=== PATIENT | female | born 1935 | race Caucasian/White ===

== ENCOUNTER 2019-01-12 11:26 | Emergency (ER) | payer MEDICARE, BC ==
[2019-01-12 13:53] LABS: Basophils % (A) 0 %; Eosinophils # (A) 0.1 k/uL (0-0.7); Eosinophils % (A) 1 %; HCT 42.3 % (34.0-46.0); HGB 14.5 gm/dL (11.4-16.0); Lymphocytes # (A) 1.5 k/uL (1.0-4.8); Lymphocytes % (A) 18 %; MCH 29.2 pg (25.0-35.0); MCHC 34.4 g/dL (31.0-37.0); Mean Platelet Volume 7.1; Monocytes # (A) 0.4 k/uL (0-1.0); Monocytes % (A) 5 %; Neutrophils % (A) 74 %; Platelet Count 277 k/uL (150-450); RBC 4.98 m/uL (3.80-5.40); RDW 13.9 % (11.5-15.5); WBC 8.1 k/uL (3.8-10.6)
[2019-01-12 14:02] LABS: Appearance,Urine Clear (Clear); Bacteria,Urine Rare /hpf; Bilirubin,Urine Negative (Negative); Blood,Urine Small (Negative); Color,Urine Yellow; Glucose,Urine (UA) Negative (Negative); Ketones,Urine Negative (Negative); Leukocyte Esterase,Urine Negative (Negative); Mucus,Urine Rare /hpf; Nitrite,Urine Negative (Negative); Protein,Urine Negative (Negative); RBC,Urine 1 /hpf (0-5); Specific Gravity,Urine 1.013 (1.001-1.035); Squamous Epithelial Cell,Urine 1 /hpf (0-4); Urobilinogen,Urine <2.0 mg/dL (<2.0); WBC,Urine <1 /hpf (0-5)
[2019-01-12 14:03] LABS: ALT 31 U/L (9-52); AST 21 U/L (14-36); Albumin 4.2 g/dL (3.5-5.0); Alkaline Phosphatase 100 U/L (38-126); Anion Gap 8 mmol/L; Blood Urea Nitrogen 12 mg/dL (7-17); Calcium 9.7 mg/dL (8.4-10.2); Carbon Dioxide 28 mmol/L (22-30); Chloride 104 mmol/L (98-107); Glucose 113 mg/dL (74-99); Potassium 4.4 mmol/L (3.5-5.1); Sodium 140 mmol/L (137-145); Total Bilirubin 0.5 mg/dL (0.2-1.3); Total Protein 6.9 g/dL (6.3-8.2)
[2019-01-12 14:12] LABS: Amphetamine Screen,Urine Not Detected (NotDetected); Barbiturate Screen,Urine Not Detected (NotDetected); Benzodiazepines Screen,Urine Not Detected (NotDetected); Cocaine Screen,Urine Not Detected (NotDetected); Methadone Screen, Urine Not Detected (NotDetected); Opiate Screen,Urine Not Detected (NotDetected); Oxycodone Screen, Urine Not Detected (NotDetected); Phencyclidine Screen,Urine Not Detected (NotDetected); Tricyclic Antidepressant,Urine Not Detected (NotDetected); Urn Cannabinoid Scrn Not Detected (NotDetected)
--- NOTE | 2019-01-12 17:10 | ED ---
General Adult HPI - General Source: patient, family, RN notes reviewed Mode of arrival: ambulatory Limitations: no limitations <Camilo Hopkins - Last Filed: 01/12/19 17:05> <Riley Campos - Last Filed: 01/12/19 19:51> - General Chief complaint: Psychiatric Symptoms Stated complaint: EPS eval, urinary frequency Time Seen by Provider: 01/12/19 12:40 - History of Present Illness Initial comments: 83-year-old female with a past medical history of hyperlipidemia, hypertension, overactive bladder presents to the emergency department for suicidal thoughts. Patient states that she has had an overactive bladder for the past several months and has been urinating multiple times for hour. Patient states she has tried multiple medications for this which just seemed to worsen her symptoms. She states that because of this urinary urgency and frequency she has become suicidal. She states she no longer feels like her life is worth living. Patient states that she was up all night contemplating suicide. States that she wrote suicidal notes to her children and had a plan to overdose. Her daughter came over and apparently intervened and brought her to the emergency department. Patient states this is all stemming from her incontinence as it is affecting her livelihood.Patient has no other complaints at this time including shortness of breath, chest pain, abdominal pain, nausea or vomiting, headache, or visual changes. (Camilo Hopkins) - Related Data Home Medications Medication Instructions Recorded Confirmed Diphenox-Atrop 2.5-0.025 mg 1 tab PO 5XD PRN 01/12/19 01/12/19 [Lomotil] Isosorbide Mononitrate ER [Imdur] 60 mg PO DAILY 01/12/19 01/12/19 Metoprolol Succinate [Toprol Xl] 50 mg PO HS 01/12/19 01/12/19 Mirabegron [Myrbetriq] 50 mg PO DAILY 01/12/19 01/12/19 Oxybutynin Chloride [Ditropan] 10 mg PO DAILY 01/12/19 01/12/19 Simvastatin [Zocor] 20 mg PO HS 01/12/19 01/12/19 traZODone HCL 100 mg PO HS 01/12/19 01/12/19 Allergies Allergy/AdvReac Type Severity Reaction Status Date / Time Penicillins Allergy Unknown Verified 01/12/19 13:32 Childhood sulfamethoxazole Allergy Nausea & Verified 01/12/19 13:32 [From Bactrim] Vomiting & Diarrhea trimethoprim [From Bactrim] Allergy Nausea & Verified 01/12/19 13:32 Vomiting & Diarrhea Review of Systems ROS Other: All systems not noted in ROS Statement are negative. <KellieCamilo Neli - Last Filed: 01/12/19 17:05> ROS Other: All systems not noted in ROS Statement are negative. <Riley Campos - Last Filed: 01/12/19 19:51> ROS Statement: Those systems with pertinent positive or pertinent negative responses have been documented in the HPI. Past Medical History Past Medical History: Hyperlipidemia, Hypertension Additional Past Medical History / Comment(s): frequent urination History of Any Multi-Drug Resistant Organisms: None Reported Past Surgical History: Section, Tubal Ligation Past Psychological History: Anxiety, Depression Smoking Status: Never smoker Past Alcohol Use History: None Reported Past Drug Use History: None Reported <Camilo Hopkins P - Last Filed: 01/12/19 17:05> General Exam Limitations: no limitations General appearance: alert, in no apparent distress Head exam: Present: atraumatic, normocephalic, normal inspection Eye exam: Present: normal appearance, PERRL, EOMI. Absent: scleral icterus, conjunctival injection, periorbital swelling ENT exam: Present: normal exam, mucous membranes moist Neck exam: Present: normal inspection, full ROM. Absent: tenderness, meningismus, lymphadenopathy Respiratory exam: Present: normal lung sounds bilaterally. Absent: respiratory distress, wheezes, rales, rhonchi, stridor Cardiovascular Exam: Present: regular rate, normal rhythm, normal heart sounds. Absent: systolic murmur, diastolic murmur, rubs, gallop, clicks Neurological exam: Present: alert, oriented X3, CN II-XII intact Psychiatric exam: Present: suicidal ideation <Camilo Hopkins - Last Filed: 01/12/19 17:05> General appearance: alert, in no apparent distress Head exam: Present: atraumatic, normocephalic, normal inspection Eye exam: Present: normal appearance, PERRL, EOMI. Absent: scleral icterus, conjunctival injection, periorbital swelling ENT exam: Present: normal exam, mucous membranes moist Neck exam: Present: normal inspection. Absent: tenderness, meningismus, lymphadenopathy Respiratory exam: Present: normal lung sounds bilaterally. Absent: respiratory distress, wheezes, rales, rhonchi, stridor Cardiovascular Exam: Present: regular rate, normal rhythm, normal heart sounds. Absent: systolic murmur, diastolic murmur, rubs, gallop, clicks GI/Abdominal exam: Present: soft, normal bowel sounds. Absent: distended, tenderness, guarding, rebound, rigid Extremities exam: Present: normal inspection, full ROM, normal capillary refill. Absent: tenderness, pedal edema, joint swelling, calf tenderness Back exam: Present: normal inspection Neurological exam: Present: alert, oriented X3, CN II-XII intact Psychiatric exam: Present: normal affect, normal mood Skin exam: Present: warm, dry, intact, normal color. Absent: rash <Riley Campos - Last Filed: 01/12/19 19:51> Course <Camilo Hopkins - Last Filed: 01/12/19 17:05> Vital Signs 01/12/19 01/12/19 01/12/19 11:40 18:00 18:55 Temperature 98.2 F 97.9 F 98.9 F Pulse Rate 93 92 86 Respiratory 17 18 18 Rate Blood Pressure 183/83 167/92 160/89 O2 Sat by Pulse 97 96 98 Oximetry - Reevaluation(s) Reevaluation #1: 01/12/19 17:09 patient's daughter has been at bedside throughout her stay (Camilo Hopkins) Medical Decision Making - Lab Data Result diagrams: 01/12/19 13:30 01/12/19 13:30 <Camilo Hopkins - Last Filed: 01/12/19 17:05> - Lab Data Result diagrams: 01/12/19 13:30 01/12/19 13:30 <Riley Campos - Last Filed: 01/12/19 19:51> - Medical Decision Making 83-year-old female presents for suicidal thoughts after experiencing overactive bladder for the past several months. No relief with medications for this. Patient states this is now ruining her livelihood and she has become suicidal. Patient has a plan to overdose on her medications and has written suicidal notes to her children. Daughter is concerned that she may act on these thoughts. Patient was evaluated by EPS to recommend transfer to geriatric psych facility. Patient is in agreement with this. (Camilo Hopkins) 83 female who was seen and evaluated in emergency room, will be transferred for inpatient psychiatric evaluation and treatment (Riley Campos) - Lab Data Lab Results 01/12/19 01/12/19 01/12/19 Range/Units 13:30 13:30 13:30 WBC 8.1 (3.8-10.6) k/uL RBC 4.98 (3.80-5.40) m/uL Hgb 14.5 (11.4-16.0) gm/dL Hct 42.3 (34.0-46.0) % MCV 85.0 (80.0-100.0) fL MCH 29.2 (25.0-35.0) pg MCHC 34.4 (31.0-37.0) g/dL RDW 13.9 (11.5-15.5) % Plt Count 277 (150-450) k/uL Neutrophils % 74 % Lymphocytes % 18 % Monocytes % 5 % Eosinophils % 1 % Basophils % 0 % Neutrophils # 6.0 (1.3-7.7) k/uL Lymphocytes # 1.5 (1.0-4.8) k/uL Monocytes # 0.4 (0-1.0) k/uL Eosinophils # 0.1 (0-0.7) k/uL Basophils # 0.0 (0-0.2) k/uL Sodium 140 (137-145) mmol/L Potassium 4.4 (3.5-5.1) mmol/L Chloride 104 (98-107) mmol/L Carbon Dioxide 28 (22-30) mmol/L Anion Gap 8 mmol/L BUN 12 (7-17) mg/dL Creatinine 0.55 (0.52-1.04) mg/dL Est GFR (CKD-EPI)AfAm >90 (>60 ml/min/1.73 sqM) Est GFR (CKD-EPI)NonAf 88 (>60 ml/min/1.73 sqM) Glucose 113 H (74-99) mg/dL Calcium 9.7 (8.4-10.2) mg/dL Total Bilirubin 0.5 (0.2-1.3) mg/dL AST 21 (14-36) U/L ALT 31 (9-52) U/L Alkaline Phosphatase 100 (38-126) U/L Total Protein 6.9 (6.3-8.2) g/dL Albumin 4.2 (3.5-5.0) g/dL Urine Color Yellow Urine Appearance Clear (Clear) Urine pH 5.0 (5.0-8.0) Ur Specific [place] 1.013 (1.001-1.035) Urine Protein Negative (Negative) Urine Glucose (UA) Negative (Negative) Urine Ketones Negative (Negative) Urine Blood Small H (Negative) Urine Nitrite Negative (Negative) Urine Bilirubin Negative (Negative) Urine Urobilinogen <2.0 (<2.0) mg/dL Ur Leukocyte Esterase Negative (Negative) Urine RBC 1 (0-5) /hpf Urine WBC <1 (0-5) /hpf Ur Squamous Epith Cells 1 (0-4) /hpf Urine Bacteria Rare H (None) /hpf Urine Mucus Rare H (None) /hpf Urine Opiates Screen Not Detected (NotDetected) Ur Oxycodone Screen Not Detected (NotDetected) Urine Methadone Screen Not Detected (NotDetected) Ur Propoxyphene Screen Not Detected (NotDetected) Ur Barbiturates Screen Not Detected (NotDetected) U Tricyclic Antidepress Not Detected (NotDetected) Ur Phencyclidine Scrn Not Detected (NotDetected) Ur Amphetamines Screen Not Detected (NotDetected) U Methamphetamines Scrn Not Detected (NotDetected) U Benzodiazepines Scrn Not Detected (NotDetected) Urine Cocaine Screen Not Detected (NotDetected) U Marijuana (THC) Screen Not Detected (NotDetected) Disposition Is patient prescribed a controlled substance at d/c from ED?: No Time of Disposition: 17:09 <Camilo Hopkins P - Last Filed: 01/12/19 17:05> Is patient prescribed a controlled substance at d/c from ED?: No <Riley Campos - Last Filed: 01/12/19 19:51> Clinical Impression: Suicidal ideation Disposition: TRANSFER TO PSYCH HOSP/UNIT Condition: Fair Referrals: Gonzalez Aguilar MD [Primary Care Provider] - 1-2 days
[2019-01-12] MEDS ORDERED: LORazepam 1 MG TAB PO STA (17:45)
[2019-01-12] MEDS ORDERED: METOPROLOL SUCCINATE (ER) 50 MG TAB.ER.24H PO STA (19:18)
[2019-01-12] MEDS ORDERED: ATORVASTATIN 20 MG TAB PO STA (19:20)
[2019-01-12] MEDS ORDERED: traZODone HCL 50 MG TAB PO ONE (23:00)
[2019-01-12 23:08] VITALS: TEMP 97.8
[2019-01-13] MEDS ORDERED: LORazepam 1 MG TAB PO STA ×2 (04:22→11:36)
[2019-01-13 05:05] VITALS: BP 118/42; PULSE 69; RESP 16
== END 2019-01-13 11:50 ==
LOC: EC 11:26
DX: R45.851 Suicidal ideations (principal); N32.81 Overactive bladder; E78.5 Hyperlipidemia, unspecified; I10 Essential (primary) hypertension; F41.9 Anxiety disorder, unspecified; F32.9 Major depressive disorder, single episode, unspecified; Z79.899 Other long term (current) drug therapy; Z88.0 Allergy status to penicillin; Z88.1 Allergy status to other antibiotic agents; Z88.2 Allergy status to sulfonamides
CPT/HCPCS: 36415; 80053; 80306; 81001; 82075; 85025; 99285

== ENCOUNTER 2025-01-30 14:22 | Inpatient (IN) | payer MEDICARE, OTHER ==
--- NOTE | 2025-01-30 15:15 | ED ---
General Adult HPI - General Chief complaint: Urogenital Stated complaint: UTI Time Seen by Provider: 01/30/25 14:34 Source: patient, EMS, RN notes reviewed Mode of arrival: EMS Limitations: altered mental status - History of Present Illness Initial comments: This is an 89-year-old female who presents to the emergency department as a transfer from [facility]. She had initially gone to the emergency department there for a fall. She lives at an assisted living facility was found on the floor by staff. The fall was not witnessed. She does have a history of dementia and was found to be at her baseline mentation. She had been complaining of left hip pain and she underwent a CT scan of the abdomen and pelvis at their facility showing diverticulitis and mild left hydroureteronephrosis. There was also concern for the elevated WBC and urinary tract infection. She was started on Levaquin and vancomycin and transferred here for IV antibiotics and urology evaluation. - Related Data Home Medications Medication Instructions Recorded Confirmed Metoprolol Succinate [Toprol Xl] 50 mg PO DAILY@0800 01/12/19 01/30/25 Acetaminophen [Acetaminophen 8 hr] 650 mg PO TID@0800,1400,199901/30/25 01/30/25 Acetaminophen [Tylenol] 650 mg PO Q4H PRN 01/30/25 01/30/25 Atorvastatin [Lipitor] 10 mg PO DAILY@79901/30/25 01/30/25 Calcium Carbonate [Tums] 1,000 mg PO Q2H PRN 01/30/25 01/30/25 Cetirizine HCl [Zyrtec] 10 mg PO DAILY PRN 01/30/25 01/30/25 DULoxetine HCL [Cymbalta] 20 mg PO BID@0800,199901/30/25 01/30/25 Lidocaine 4% Patch 1 patch TOPICAL DAILY@79901/30/25 01/30/25 Magnesium Hydroxide [Milk of 2,400 mg PO DAILY PRN 01/30/25 01/30/25 Magnesia] Melatonin 6 mg PO HS@199901/30/25 01/30/25 Menthol [Nemacolin] 7.5 mg MM Q2H PRN 01/30/25 01/30/25 Morphine Sulfate [Morphine Sulfate 15 mg PO HS@199901/30/25 01/30/25 ER] Morphine Sulfate [Morphine Sulfate 30 mg PO DAILY@79901/30/25 01/30/25 ER] Naproxen [Naprosyn] 250 mg PO BID@799,199901/30/25 01/30/25 Omeprazole [PriLOSEC] 20 mg PO DAILY@79901/30/25 01/30/25 Ondansetron [Zofran] 4 mg PO Q6H PRN 01/30/25 01/30/25 amLODIPine [Norvasc] 10 mg PO DAILY@79901/30/25 01/30/25 guaiFENesin SYRUP 100MG/5ML 100 mg PO Q4H PRN 01/30/25 01/30/25 [Robitussin] traZODone HCL [Desyrel] 50 mg PO HS@199901/30/25 01/30/25 Allergies Allergy/AdvReac Type Severity Reaction Status Date / Time Penicillins Allergy Unknown Verified 01/30/25 16:31 Childhood solifenacin [From Vesicare] Allergy Unknown Verified 01/30/25 16:31 sulfamethoxazole Allergy Nausea & Verified 01/30/25 16:31 [From Bactrim] Vomiting & Diarrhea trimethoprim [From Bactrim] Allergy Nausea & Verified 01/30/25 16:31 Vomiting & Diarrhea Review of Systems ROS Statement: Those systems with pertinent positive or pertinent negative responses have been documented in the HPI. ROS Other: All systems not noted in ROS Statement are negative. Past Medical History Past Medical History: Hyperlipidemia, Hypertension Additional Past Medical History / Comment(s): frequent urination History of Any Multi-Drug Resistant Organisms: None Reported Past Surgical History: Section, Tubal Ligation Past Psychological History: Anxiety, Depression Past Alcohol Use History: None Reported Past Drug Use History: None Reported General Exam Limitations: altered mental status General appearance: alert, in no apparent distress Head exam: Present: atraumatic, normocephalic, normal inspection Respiratory exam: Present: normal lung sounds bilaterally. Absent: respiratory distress, wheezes, rales, rhonchi, stridor Cardiovascular Exam: Present: regular rate, normal rhythm Extremities exam: Present: other (Swelling and tenderness to the bilateral lower extremities) Neurological exam: Present: alert Skin exam: Present: warm, dry, intact, normal color. Absent: rash Course Vital Signs 01/30/25 01/30/2525 14:23 16:10 17:22 Temperature 99.4 F 99.2 F 98.9 F Pulse Rate 88 91 101 H Respiratory 18 16 16 Rate Blood Pressure 101/57 101/55 119/63 O2 Sat by Pulse 97 97 99 Oximetry Medical Decision Making - Medical Decision Making This is an 89-year-old female who presents to the emergency department as a transfer for a UTI and diverticulitis. Was pt. sent in by a medical professional or institution? @ -[facility] Did you speak to anyone other than the patient for history? @ -EMS and documentation from [facility] provided all the history Did you review nursing and triage notes? @ -Yes, and I agree, it is accurate with regards to the patient's symptoms. Were old charts reviewed? @ -Documentation from [facility]: CT scan abd/pelvis: Acute sigmoid diverticulitis. Mild left hydroureteronephrosis without obstructing calculus. CT brain: No acute intracranial process UA: Positive nitrites, greater than 100 WBCs Lab work: WBC - 23.66, procalcitonin - 0.14 Differential Diagnosis? @ -Differential Weakness: Hypoglycemia, shock, sepsis, hyponatremia, anemia, infection, MO, ETOH, adverse medicine reaction, overdose, stroke, this is not meant to be an all-inclusive list. EKG interpreted by me (3pts min.)? @ -Not obtained X-rays interpreted by me (1pt min.)? @ -Not obtained CT interpreted by me (1pt min.)? @ -Not obtained U/S interpreted by me (1pt. min.)? @ -Duplex ultrasound of the bilateral lower extremities obtained. My interpretation identifies no evidence of a DVT. What testing was considered but not performed? (CT, X-rays, U/S, labs)? Why? @ -None What meds were considered but not given? Why? @ -None Did you discuss the management of the patient with other professionals? @ -Yes, Dr. Lou, who accepts the patient for admission Did you reconcile home meds? @ -Yes Was smoking cessation discussed for >3mins.? @ -No Was critical care preformed (if so, how long)? @ -No Were there social determinants of health that impacted care today? How? (Homelessness, low income, unemployed, alcoholism, drug addiction, transporta tion, low edu. Level, literacy, decrease access to med. care, mcc, rehab)? @ -No Was there de-escalation of care discussed even if they declined? (Discuss DNR or withdrawal of care, Hospice)? @ -No What co-morbidities impacted this encounter? (DM, HTN, Smoking, COPD, CAD, Cancer, CVA, Hep., AIDS, mental health diagnosis, sleep apnea, morbid obesity)? @ -Dementia Was patient admitted / discharged? @ -Admitted. Patient transferred from [facility] for diverticulitis and UTI with left hydroureteronephrosis. No obstructing calculus was identified. Transfer packet sent with the patient was thoroughly reviewed. Repeat lab work here demonstrates leukocytosis with a white blood cell count of 16.8. Blood culture obtained at their facility and they also administered IV fluids per sepsis criteria. Urinalysis here remains consistent with infection. Urine sent for culture here as well. She started on ceftriaxone and Flagyl for management of both the UTI and diverticulitis. She did have swelling in the bilateral lower extremities and a duplex ultrasound was obtained. No evidence of a DVT was identified. Patient admitted to medicine for UTI and diverticulitis. Consult placed for infectious disease. Urology consulted for the hydronephrosis. Case discussed with ED attending Dr. Campos Undiagnosed new problem with uncertain prognosis? @ -None Drug Therapy requiring intensive monitoring for toxicity (Heparin, Nitro, Insulin, Cardizem)? @ -None Were any procedures done? @ -None Diagnosis/symptom? @ -Diverticulitis, UTI, hydronephrosis Acute, or Chronic, or Acute on Chronic? @ -Acute Uncomplicated (without systemic symptoms) or Complicated (systemic symptoms)? @ -Complicated Side effects of treatment? @ -None Exacerbation, Progression, or Severe Exacerbation] @ -Not applicable Poses a threat to life or bodily function? @ -Yes, can lead to septic shock and - Lab Data Result diagrams: 01/30/25 15:12 01/30/25 15:12 Lab Results 01/30/25 01/30/25 01/30/25 Range/Units 15:12 15:12 15:12 WBC 16.88 H (4.50-10.00) 10*3/uL RBC 3.57 L (4.10-5.20) 10*6/uL Hgb 8.3 L (12.0-15.0) g/dL Hct 26.0 L (37.2-46.3) % MCV 72.8 L (80.0-97.0) fL MCH 23.2 L (27.0-32.0) pg MCHC 31.9 L (32.0-37.0) g/dL Plt Count 461 H (140-440) 10*3/uL MPV 8.4 L (9.5-12.2) fL Immature Gran % (Auto) 0.4 % Neutrophils % 91.8 % Lymphocytes % 2.4 % Monocytes % 5.3 % Eosinophils % 0.0 % Basophils % 0.1 % Immature Gran # 0.06 H (0.00-0.04) 10*3/uL Neutrophils # 15.50 H (1.80-7.70) 10*3/uL Lymphocytes # 0.41 L (0.90-5.00) 10*3/uL Monocytes # 0.89 (0.20-1.00) 10*3/uL Eosinophils # 0.00 L (0.04-0.35) 10*3/uL Basophils # 0.02 (0.00-0.10) 10*3/uL Sodium 129 L (137-145) mmol/L Potassium 3.7 (3.5-5.1) mmol/L Chloride 93 L (98-107) mmol/L Carbon Dioxide 29 (22-30) mmol/L Anion Gap 7 mmol/L BUN 30 H (7-17) mg/dL Creatinine 0.57 (0.52-1.04) mg/dL Est GFR (CKD-EPI)AfAm >90 (>60 ml/min/1.73 sqM) Est GFR (CKD-EPI)NonAf 84 (>60 ml/min/1.73 sqM) Glucose 105 H (74-99) mg/dL Plasma Lactic Acid Shukri 0.9 (0.7-2.0) mmol/L Calcium 8.7 (8.4-10.2) mg/dL Total Bilirubin 0.6 (0.2-1.3) mg/dL AST 19 (14-36) U/L ALT 10 (4-34) U/L Alkaline Phosphatase 149 H (38-126) U/L NT-Pro-B Natriuret Pep pg/mL Total Protein 4.9 L (6.3-8.2) g/dL Albumin 2.4 L (3.5-5.0) g/dL 01/30/25 Range/Units 15:12 WBC (4.50-10.00) 10*3/uL RBC (4.10-5.20) 10*6/uL Hgb (12.0-15.0) g/dL Hct (37.2-46.3) % MCV (80.0-97.0) fL MCH (27.0-32.0) pg MCHC (32.0-37.0) g/dL Plt Count (140-440) 10*3/uL MPV (9.5-12.2) fL Immature Gran % (Auto) % Neutrophils % % Lymphocytes % % Monocytes % % Eosinophils % % Basophils % % Immature Gran # (0.00-0.04) 10*3/uL Neutrophils # (1.80-7.70) 10*3/uL Lymphocytes # (0.90-5.00) 10*3/uL Monocytes # (0.20-1.00) 10*3/uL Eosinophils # (0.04-0.35) 10*3/uL Basophils # (0.00-0.10) 10*3/uL Sodium (137-145) mmol/L Potassium (3.5-5.1) mmol/L Chloride (98-107) mmol/L Carbon Dioxide (22-30) mmol/L Anion Gap mmol/L BUN (7-17) mg/dL Creatinine (0.52-1.04) mg/dL Est GFR (CKD-EPI)AfAm (>60 ml/min/1.73 sqM) Est GFR (CKD-EPI)NonAf (>60 ml/min/1.73 sqM) Glucose (74-99) mg/dL Plasma Lactic Acid Shukri (0.7-2.0) mmol/L Calcium (8.4-10.2) mg/dL Total Bilirubin (0.2-1.3) mg/dL AST (14-36) U/L ALT (4-34) U/L Alkaline Phosphatase (38-126) U/L NT-Pro-B Natriuret Pep 1340 pg/mL Total Protein (6.3-8.2) g/dL Albumin (3.5-5.0) g/dL - Radiology Data Radiology results: report reviewed, image reviewed Disposition Clinical Impression: Urinary tract infection, Diverticulitis, Hydronephrosis Disposition: ADMITTED IP TO THIS HOSP
[2025-01-30 15:17] LABS: Basophils # (A) 0.02 10*3/uL (0.00-0.10); Basophils % (A) 0.1 %; HGB 8.3 g/dL (12.0-15.0); Lymphocytes # (A) 0.41 10*3/uL (0.90-5.00); Lymphocytes % (A) 2.4 %; MCH 23.2 pg (27.0-32.0); MCHC 31.9 g/dL (32.0-37.0); MCV 72.8 fL (80.0-97.0); Mean Platelet Volume 8.4 fL (9.5-12.2); Monocytes # (A) 0.89 10*3/uL (0.20-1.00); Monocytes % (A) 5.3 %; Neutrophils % (A) 91.8 %; Platelet Count 461 10*3/uL (140-440); RBC 3.57 10*6/uL (4.10-5.20); RDW 17.3 % (11.5-14.5); WBC 16.88 10*3/uL (4.50-10.00)
[2025-01-30] MEDS ORDERED: ONDANSETRON 4 MG/2 ML VIAL IVP PRN (15:27)
[2025-01-30] MEDS ORDERED: NALOXONE 0.4 MG/ML 1 ML VIAL IV PRN (15:27)
[2025-01-30] MEDS ORDERED: HYDROcodone/APAP 5-325MG 1 EACH TAB PO PRN (15:27)
[2025-01-30] MEDS ORDERED: MORPHINE SULFATE 4 MG/ML SYRINGE IV PRN (15:27)
[2025-01-30 15:35] LABS: ALT 10 U/L (4-34); AST 19 U/L (14-36); African American GFR (CKD) >90 (>60 ml/min/1.73 sqM); Albumin 2.4 g/dL (3.5-5.0); Alkaline Phosphatase 149 U/L (38-126); Anion Gap 7 mmol/L; Blood Urea Nitrogen 30 mg/dL (7-17); Calcium 8.7 mg/dL (8.4-10.2); Carbon Dioxide 29 mmol/L (22-30); Chloride 93 mmol/L (98-107); Glucose 105 mg/dL (74-99); Non-African American GFR(CKD) 84 (>60 ml/min/1.73 sqM); Potassium 3.7 mmol/L (3.5-5.1); Sodium 129 mmol/L (137-145); Total Bilirubin 0.6 mg/dL (0.2-1.3); Total Protein 4.9 g/dL (6.3-8.2)
[2025-01-30 15:58] LABS: Appearance,Urine Turbid (Clear); Bacteria,Urine Many /hpf; Bilirubin,Urine Negative (Negative); Blood,Urine Moderate (Negative); Color,Urine Light Yellow; Glucose,Urine (UA) Negative (Negative); Ketones,Urine Negative (Negative); Leukocyte Esterase,Urine Large (Negative); Nitrite,Urine Positive (Negative); Protein,Urine 1+ (Negative); RBC,Urine 22 /hpf (0-5); Specific Gravity,Urine 1.019 (1.001-1.035); Squamous Epithelial Cell,Urine 5 /hpf (0-4); Urobilinogen,Urine <2.0 mg/dL (<2.0); WBC,Urine >182 /hpf (0-5)
[2025-01-30] MEDS: FLUCONAZOLE 150 MG TAB PO STA (16:03)
[2025-01-30] MEDS: MORPHINE SULFATE 2 MG/ML SYRINGE IVP STA (16:04)
[2025-01-30] MEDS: LACTATED RINGERS 1,000 ML IV ONE (16:08)
[2025-01-30] MEDS: metroNIDAZOLE-NS PMX 500 MG in SALINE 1 100ML.BAG IVPB SCH (16:47)
--- NOTE | 2025-01-30 17:00 | US ---
EXAMINATION TYPE: US venous doppler duplex LE BI DATE OF EXAM: 01/30/2025 4:44 PM COMPARISON: NONE CLINICAL INDICATION: Female, 89 years old with history of Pain and swelling; Swelling to bilat legs t he past 2 weeks, UTI, redness at ankle and extreme tenderness in legs, no h/o dvt TECHNIQUE: The lower extremity deep venous system is examined utilizing real time linear array sonog skip with graded compression, color doppler sonography, and spectral doppler. SIDE PERFORMED: Bilateral FINDINGS: VESSELS IMAGED: Common Femoral Vein Deep Femoral Vein Greater Saphenous Vein * Femoral Vein Popliteal Vein Small Saphenous Vein * Proximal Calf Veins (* superficial vessels) Unable to do any compression imaging due to patients extreme leg sensitivity and lack of cooperatio n. Right Leg: Negative for DVT, Color Doppler imaging shows patency of the vessels. Spectral waveforms are within normal limits. Left Leg: Negative for DVT, Color Doppler imaging shows patency of the vessels. Spectral waveforms a re within normal limits. IMPRESSION: No ultrasound evidence for deep venous thrombosis. [facility], , 01/30/2025 4:57 PM
[2025-01-30] MEDS ORDERED: LORATADINE 10 MG TAB PO PRN (17:18)
[2025-01-30] MEDS ORDERED: MAGNESIUM HYDROXIDE 2,400 MG/30 ML CUP PO PRN (17:18)
[2025-01-30] MEDS ORDERED: ONDANSETRON ODT 4 MG TAB PO PRN (17:18)
[2025-01-30] MEDS ORDERED: BENZOCAINE/MENTHOL LOZENG 1 EACH LOZENGE MUCOUS MEM PRN (17:18)
[2025-01-30] MEDS ORDERED: guaiFENesin SYRUP 100MG/5ML 200 MG/10 ML CUP PO PRN (17:18)
[2025-01-30] MEDS ORDERED: CALCIUM CARBONATE 500 MG CHEWABLE PO PRN (17:18)
[2025-01-30] MEDS ORDERED: ACETAMINOPHEN TAB 325 MG TAB PO PRN (17:18)
[2025-01-30] MEDS: LACTATED RINGERS 1,000 ML IV SCH (17:22)
[2025-01-30] MEDS: NAPROXEN 250 MG TAB PO SCH (19:44)
[2025-01-30] MEDS: MELATONIN 3 MG TABLET PO SCH (19:46)
[2025-01-30] MEDS: ACETAMINOPHEN TAB 325 MG TAB PO PRN (19:48)
[2025-01-30] MEDS: MORPHINE SULFATE ER 15 MG TABLET PO SCH (19:48)
[2025-01-30] MEDS: traZODone HCL 50 MG TAB PO SCH (19:48)
[2025-01-30] MEDS: ACETAMINOPHEN TAB 325 MG TAB PO SCH (19:51)
[2025-01-30] MEDS: DULoxetine HCL 20 MG CAPSULE.DR PO SCH (21:19)
--- NOTE | 2025-01-30 21:31 | P.HPIM ---
History of Present Illness H&P Date: 01/30/25 Chief Complaint: Dementia/fall 89-year-old female, history of dementia, hypertension, hyperlipidemia, who presents to the emergency department as a transfer from [facility]. She had initially gone to the emergency department there for a fall. She lives at an assisted living facility was found on the floor by staff. The fall was not witnessed. She does have a history of dementia and was found to be at her baseline mentation. She had been complaining of left hip pain and she underwent a CT scan of the abdomen and pelvis at their facility showing diverticulitis and mild left hydroureteronephrosis. There was also concern for the elevated WBC and urinary tract infection. She was started on Levaquin and vancomycin and transferred here for IV antibiotics and urology evaluation. Documentation accompanying patient from [facility] CT scan abd/pelvis: Acute sigmoid diverticulitis. Mild left hydroureteronephrosis without obstructing calculus. CT brain: No acute intracranial process UA: Positive nitrites, greater than 100 WBCs Lab work: WBC - 23.66, procalcitonin - 0.14 She started on ceftriaxone and Flagyl for management of both the UTI and d iverticulitis. She did have swelling in the bilateral lower extremities and a duplex ultrasound was obtained. No evidence of a DVT was identified. Review of Systems ROS unobtainable: due to mental status Past Medical History Past Medical History: Hyperlipidemia, Hypertension Additional Past Medical History / Comment(s): frequent urination History of Any Multi-Drug Resistant Organisms: None Reported Past Surgical History: Section, Tubal Ligation Past Psychological History: Anxiety, Depression Past Alcohol Use History: None Reported Past Drug Use History: None Reported Medications and Allergies Home Medications Medication Instructions Recorded Confirmed Type Metoprolol Succinate [Toprol Xl] 50 mg PO DAILY@0800 01/12/19 01/30/25 History Acetaminophen [Acetaminophen 8 hr] 650 mg PO TID@0800,1400,2000 01/30/25 01/30/25 History Acetaminophen [Tylenol] 650 mg PO Q4H PRN 01/30/25 01/30/25 History Atorvastatin [Lipitor] 10 mg PO DAILY@0800 01/30/25 01/30/25 History Calcium Carbonate [Tums] 1,000 mg PO Q2H PRN 01/30/25 01/30/25 History Cetirizine HCl [Zyrtec] 10 mg PO DAILY PRN 01/30/25 01/30/25 History DULoxetine HCL [Cymbalta] 20 mg PO BID@799,199901/30/25 01/30/25 History Lidocaine 4% Patch 1 patch TOPICAL DAILY@0800 01/30/25 01/30/25 History Magnesium Hydroxide [Milk of 2,400 mg PO DAILY PRN 01/30/25 01/30/25 History Magnesia] Melatonin 6 mg PO HS@199901/30/25 01/30/25 History Menthol [[place]] 7.5 mg MM Q2H PRN 01/30/25 01/30/25 History Morphine Sulfate [Morphine Sulfate 15 mg PO HS@199901/30/25 01/30/25 History ER] Morphine Sulfate [Morphine Sulfate 30 mg PO DAILY@79901/30/25 01/30/25 History ER] Naproxen [Naprosyn] 250 mg PO BID@799,199901/30/25 01/30/25 History Omeprazole [PriLOSEC] 20 mg PO DAILY@0801/30/25 01/30/25 History Ondansetron [Zofran] 4 mg PO Q6H PRN 01/30/25 01/30/25 History amLODIPine [Norvasc] 10 mg PO DAILY@0801/30/25 01/30/25 History guaiFENesin SYRUP 100MG/5ML 100 mg PO Q4H PRN 01/30/25 01/30/25 History [Robitussin] traZODone HCL [Desyrel] 50 mg PO HS@199901/30/25 01/30/25 History Allergies Allergy/AdvReac Type Severity Reaction Status Date / Time Penicillins Allergy Unknown Verified 01/30/25 16:31 Childhood solifenacin [From Vesicare] Allergy Unknown Verified 01/30/25 16:31 sulfamethoxazole Allergy Nausea & Verified 01/30/25 16:31 [From Bactrim] Vomiting & Diarrhea trimethoprim [From Bactrim] Allergy Nausea & Verified 01/30/25 16:31 Vomiting & Diarrhea Physical Exam Vitals: Vital Signs Temp Pulse Resp BP Pulse Ox 01/30/25 18:12 92 16 106/57 95 01/30/25 17:22 98.9 F 101 H 16 119/63 99 01/30/25 16:10 99.2 F 91 16 101/55 97 01/30/25 14:23 99.4 F 88 18 101/57 97 Intake and Output 01/30/25 01/30/25 01/30/25 06:59 14:59 22:59 Other: Weight 46.266 kg Limitations: altered mental status General appearance: alert, in no apparent distress Head exam: Present: atraumatic, normocephalic, normal inspection Respiratory exam: Present: normal lung sounds bilaterally. Absent: respiratory distress, wheezes, rales, rhonchi, stridor Cardiovascular Exam: Present: regular rate, normal rhythm Extremities exam: Present: other (Swelling and tenderness to the bilateral lower extremities) Neurological exam: Present: alert Skin exam: Present: warm, dry, intact, normal color. Absent: rash Results CBC & Chem 7: 01/30/25 15:12 01/30/25 15:12 Labs: Abnormal Lab Results - Last 24 Hours (Table) 01/30/25 01/30/25 01/30/25 Range/Units 15:12 15:12 15:31 WBC 16.88 H (4.50-10.00) 10*3/uL RBC 3.57 L (4.10-5.20) 10*6/uL Hgb 8.3 L (12.0-15.0) g/dL Hct 26.0 L (37.2-46.3) % MCV 72.8 L (80.0-97.0) fL MCH 23.2 L (27.0-32.0) pg MCHC 31.9 L (32.0-37.0) g/dL Plt Count 461 H (140-440) 10*3/uL MPV 8.4 L (9.5-12.2) fL Immature Gran # 0.06 H (0.00-0.04) 10*3/uL Neutrophils # 15.50 H (1.80-7.70) 10*3/uL Lymphocytes # 0.41 L (0.90-5.00) 10*3/uL Eosinophils # 0.00 L (0.04-0.35) 10*3/uL Sodium 129 L (137-145) mmol/L Chloride 93 L (98-107) mmol/L BUN 30 H (7-17) mg/dL Glucose 105 H (74-99) mg/dL Alkaline Phosphatase 149 H (38-126) U/L Total Protein 4.9 L (6.3-8.2) g/dL Albumin 2.4 L (3.5-5.0) g/dL Urine Appearance Turbid H (Clear) Urine Protein 1+ H (Negative) Urine Blood Moderate H (Negative) Urine Nitrite Positive H (Negative) Ur Leukocyte Esterase Large H (Negative) Urine RBC 22 H (0-5) /hpf Urine WBC >182 H (0-5) /hpf Urine WBC Clumps Many H (None) /hpf Ur Squamous Epith Cells 5 H (0-4) /hpf Urine Bacteria Many H (None) /hpf Assessment and Plan Assessment: 1. Acute diverticulitis; CT of the abdomen reveals acute diverticulitis; patient was placed on IV antibiotics and received IV Levaquin and vancomycin per transfer records - Patient has been switched to IV Rocephin and Flagyl; will keep n.p.o. - Monitor CBC, CRP and procalcitonin; will start on a diet once clinically improving 2. UTI/cystitis; remains on IV Rocephin; blood cultures and urine culture was obtained at the outside facility; will review once available 3. Hydroureteronephrosis - Patient had CT of the abdomen and pelvis completed at outside facility which revealed hydroureteronephrosis without any obstructing calculus - Patient has been placed on IV fluids; urology consulted 4. Hypertension; amlodipine 10 mg daily; metoprolol 50 mg daily 5. Hyperlipidemia; Lipitor 10 mg p.o. nightly 6. Chronic back pain; remains on Cymbalta and morphine sulfate extended release 7. 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 Insomnia/sleep disorder; trazodone 50 mg nightly DVT prophylaxis; SCDs/subcu heparin CODE STATUS; full code
[2025-01-30] MEDS: HEPARIN SODIUM,PORCINE 5,000 UNIT/ML 1 ML VIAL SQ SCH (23:16)
[2025-01-31 09:55] LABS: Basophils # (A) 0.02 X 10*3/uL (0.00-0.10); Basophils % (A) 0.2 %; Eosinophils # (A) 0.02 X 10*3/uL (0.04-0.35); Eosinophils % (A) 0.2 %; HCT 25.7 % (37.2-46.3); HGB 7.9 g/dL (12.0-15.0); Lymphocytes # (A) 0.37 X 10*3/uL (0.90-5.00); Lymphocytes % (A) 3.3 %; MCH 23.1 pg (27.0-32.0); MCHC 30.7 g/dL (32.0-37.0); MCV 75.1 FL (80.0-97.0); Mean Platelet Volume 8.7 FL (9.5-12.2); Monocytes # (A) 0.88 X 10*3/uL (0.20-1.00); Monocytes % (A) 7.8 %; NRBC Per 100 WBC 0 X 10*3/uL (0.00-0.01); Neutrophils # (A) 9.94 X 10*3/uL (1.80-7.70); Neutrophils % (A) 88.1 %; Platelet Count 441 X 10*3/uL (140-440); RBC 3.42 X 10*6/uL (4.10-5.20); RDW 17.8 % (11.5-14.5); WBC 11.28 X 10*3/uL (4.50-10.00)
[2025-01-31 10:05] LABS: Blood Urea Nitrogen 17.6 mg/dL (9.0-27.0); Carbon Dioxide 25.7 mmol/L (21.6-31.8); Chloride 100 mmol/L (96-109); Glucose 92 mg/dL (70-110); Potassium 3.3 mmol/L (3.5-5.5); Sodium 137 mmol/L (135-145)
[2025-01-31 10:06] LABS: Calcium 8.5 mg/dL (8.7-10.3)
[2025-01-31] MEDS: METOPROLOL SUCCINATE (ER) 50 MG TAB.ER.24H PO SCH (10:18)
[2025-01-31] MEDS: PANTOPRAZOLE 40 MG TABLET PO SCH (10:18)
[2025-01-31] MEDS: amLODIPine 10 MG TAB PO SCH (10:19)
[2025-01-31] MEDS: ATORVASTATIN 10 MG TAB PO SCH (10:19)
[2025-01-31] MEDS: MORPHINE SULFATE ER 30 MG TABLET PO SCH (10:19)
[2025-01-31] MEDS: LIDOCAINE 4% PATCH TOPICAL SCH (10:23)
[2025-01-31] MEDS ORDERED: ZINC OXIDE PASTE (Z-GUARD) 1 APPLIC TOPICAL PRN (12:28)
[2025-01-31] MEDS: NYSTATIN 100,000 UNIT/GM OINT 30 GM TUBE TOPICAL SCH (12:29)
[2025-01-31] MEDS: FLUCONAZOLE IN NACL,ISO-OSM 100 MG in SALINE 1 50ML.BAG IVPB SCH (12:29)
[2025-01-31] MEDS: POTASSIUM CHLORIDE ER 20 MEQ TAB.ER PO STA (12:35)
[2025-01-31] MEDS ORDERED: VANCOMYCIN IV PER PHARMACY 1 EACH MISC MISCELLANE PRN (12:46)
[2025-01-31] MEDS: cefTRIAXone 2 GM in DEXTROSE 5% IN WATER 50 ML IVPB SCH (14:51)
[2025-01-31] MEDS: VANCOMYCIN 1,000 MG in SODIUM CHLORIDE 0.9% 250 ML IVPB ONE (15:30)
[2025-01-31] MEDS: NYSTATIN 100,000 UNIT/ML SUSP 500,000 UNIT/5 ML CUP PO SCH (17:56)
--- NOTE | 2025-01-31 20:54 | P.PN ---
Subjective Progress Note Date: 01/31/25 89-year-old female, history of dementia, hypertension, hyperlipidemia, who presents to the emergency department as a transfer from [facility]. She had initially gone to the emergency department there for a fall. She lives at an assisted living facility was found on the floor by staff. The fall was not witnessed. She does have a history of dementia and was found to be at her baseline mentation. She had been complaining of left hip pain and she underwent a CT scan of the abdomen and pelvis at their facility showing diverticulitis and mild left hydroureteronephrosis. There was also concern for the elevated WBC and urinary tract infection. She was started on Levaquin and vancomycin and transferred here for IV antibiotics and urology evaluation. Documentation accompanying patient from [facility] CT scan abd/pelvis: Acute sigmoid diverticulitis. Mild left hydroureteronephr osis without obstructing calculus. CT brain: No acute intracranial process UA: Positive nitrites, greater than 100 WBCs Lab work: WBC - 23.66, procalcitonin - 0.14 She started on ceftriaxone and Flagyl for management of both the UTI and diverticulitis. She did have swelling in the bilateral lower extremities and a duplex ultrasound was obtained. No evidence of a DVT was identified. Objective - Vital Signs Vital signs: Vital Signs Temp 98.3 F 01/31/25 07:53 Pulse 95 01/31/25 07:53 Resp 15 01/31/25 07:53 BP 134/65 01/31/25 07:53 Pulse Ox 96 01/31/25 07:53 FiO2 Intake & Output 01/30/25 01/31/25 01/31/25 18:59 06:59 18:59 Weight 46.266 kg - Exam Limitations: altered mental status General appearance: alert, in no apparent distress Head exam: Present: atraumatic, normocephalic, normal inspection Respiratory exam: Present: normal lung sounds bilaterally. Absent: respiratory distress, wheezes, rales, rhonchi, stridor Cardiovascular Exam: Present: regular rate, normal rhythm Extremities exam: Present: other (Swelling and tenderness to the bilateral lower extremities) Neurological exam: Present: alert Skin exam: Present: warm, dry, intact, normal color. Absent: rash - Labs CBC & Chem 7: 01/31/25 05:20 01/31/25 05:20 Labs: Abnormal Lab Results - Last 24 Hours (Table) 01/30/25 01/30/25 01/30/25 Range/Units 15:12 15:12 15:31 WBC 16.88 H (4.50-10.00) 10*3/uL RBC 3.57 L (4.10-5.20) 10*6/uL Hgb 8.3 L (12.0-15.0) g/dL Hct 26.0 L (37.2-46.3) % MCV 72.8 L (80.0-97.0) fL MCH 23.2 L (27.0-32.0) pg MCHC 31.9 L (32.0-37.0) g/dL RDW (11.5-14.5) % Plt Count 461 H (140-440) 10*3/uL MPV 8.4 L (9.5-12.2) fL Immature Gran # 0.06 H (0.00-0.04) 10*3/uL Neutrophils # 15.50 H (1.80-7.70) 10*3/uL Lymphocytes # 0.41 L (0.90-5.00) 10*3/uL Eosinophils # 0.00 L (0.04-0.35) 10*3/uL Sodium 129 L (137-145) mmol/L Potassium (3.5-5.5) mmol/L Chloride 93 L (98-107) mmol/L BUN 30 H (7-17) mg/dL Creatinine (0.6-1.5) mg/dL BUN/Creatinine Ratio (12.00-20.00) Ratio Glucose 105 H (74-99) mg/dL Calcium (8.7-10.3) mg/dL Alkaline Phosphatase 149 H (38-126) U/L Total Protein 4.9 L (6.3-8.2) g/dL Albumin 2.4 L (3.5-5.0) g/dL Urine Appearance Turbid H (Clear) Urine Protein 1+ H (Negative) Urine Blood Moderate H (Negative) Urine Nitrite Positive H (Negative) Ur Leukocyte Esterase Large H (Negative) Urine RBC 22 H (0-5) /hpf Urine WBC >182 H (0-5) /hpf Urine WBC Clumps Many H (None) /hpf Ur Squamous Epith Cells 5 H (0-4) /hpf Urine Bacteria Many H (None) /hpf 01/31/25 01/31/25 Range/Units 05:20 05:20 WBC 11.28 H (4.50-10.00) 10*3/uL RBC 3.42 L (4.10-5.20) 10*6/uL Hgb 7.9 L (12.0-15.0) g/dL Hct 25.7 L (37.2-46.3) % MCV 75.1 L (80.0-97.0) fL MCH 23.1 L (27.0-32.0) pg MCHC 30.7 L (32.0-37.0) g/dL RDW 17.8 H (11.5-14.5) % Plt Count 441 H (140-440) 10*3/uL MPV 8.7 L (9.5-12.2) fL Immature Gran # 0.05 H (0.00-0.04) 10*3/uL Neutrophils # 9.94 H (1.80-7.70) 10*3/uL Lymphocytes # 0.37 L (0.90-5.00) 10*3/uL Eosinophils # 0.02 L (0.04-0.35) 10*3/uL Sodium (137-145) mmol/L Potassium 3.3 L (3.5-5.5) mmol/L Chloride (98-107) mmol/L BUN (7-17) mg/dL Creatinine 0.5 L (0.6-1.5) mg/dL BUN/Creatinine Ratio 35.20 H (12.00-20.00) Ratio Glucose (74-99) mg/dL Calcium 8.5 L (8.7-10.3) mg/dL Alkaline Phosphatase (38-126) U/L Total Protein (6.3-8.2) g/dL Albumin (3.5-5.0) g/dL Urine Appearance (Clear) Urine Protein (Negative) Urine Blood (Negative) Urine Nitrite (Negative) Ur Leukocyte Esterase (Negative) Urine RBC (0-5) /hpf Urine WBC (0-5) /hpf Urine WBC Clumps (None) /hpf Ur Squamous Epith Cells (0-4) /hpf Urine Bacteria (None) /hpf Assessment and Plan Assessment: 1. Acute diverticulitis; CT of the abdomen reveals acute diverticulitis; patient was placed on IV antibiotics and received IV Levaquin and vancomycin per transfer records - Patient has been switched to IV Rocephin and Flagyl; will keep n.p.o. - Monitor CBC, CRP and procalcitonin; will start on a diet once clinically improving 2. UTI/cystitis; remains on IV Rocephin; blood cultures and urine culture was obtained at the outside facility; will review once available 3. Hydroureteronephrosis - Patient had CT of the abdomen and pelvis completed at outside facility which revealed hydroureteronephrosis without any obstructing calculus - Patient has been placed on IV fluids; urology consulted 4. Hypertension; amlodipine 10 mg daily; metoprolol 50 mg daily 5. Hyperlipidemia; Lipitor 10 mg p.o. nightly 6. Chronic back pain; remains on Cymbalta and morphine sulfate extended release 7. 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 Insomnia/sleep disorder; trazodone 50 mg nightly DVT prophylaxis; SCDs/subcu heparin CODE STATUS; full code
--- NOTE | 2025-01-31 21:41 | P.GSCN ---
History of Present Illness Consult date: 01/31/25 Reason for Consult: UTI, left hydroureteronephrosis Requesting physician: Bart Larson History of present illness: The patient is an 89-year-old white female who resides in a an assisted living facility. She has a history of dementia and was found on the floor by staff. She reported left hip pain and underwent CT scan of the abdomen and pelvis at [facility], revealing diverticulitis and mild left hydrouret eronephrosis. Urinalysis was consistent with a UTI, and laboratory studies showed evidence of leukocytosis. She was started on IV antibiotics and transferred to [facility] for further management. She has been noted to have bilateral lower extremity edema. Duplex ultrasound shows no evidence of a DVT. Blood cultures from [facility] have shown gram-positive cocci in clusters. Urine culture is pending. The patient denies dysuria, hematuria, and flank pain. She denies any prior history of urolithiasis. She states that she was treated for a UTI during a previous . Review of Systems - Cardiovascular Reports high blood pressure - Gastrointestinal Denies constipation, Denies diarrhea - Genitourinary Genitourinary: Reports as per HPI Past Medical History Past Medical History: Hyperlipidemia, Hypertension Additional Past Medical History / Comment(s): frequent urination,diverticulitis History of Any Multi-Drug Resistant Organisms: None Reported Past Surgical History: Section, Hysterectomy, Tubal Ligation Past Psychological History: Anxiety, Depression Smoking Status: Never smoker Past Alcohol Use History: None Reported Past Drug Use History: None Reported - Past Family History Sister(s) Family Medical History: Myocardial Infarction ([place]) Mother Family Medical History: Cancer Additional Family Medical History / Comment(s): breast cancer Brother(s) Family Medical History: Cancer Additional Family Medical History / Comment(s): lung cancer Medications and Allergies Home Medications Medication Instructions Recorded Confirmed Type Metoprolol Succinate [Toprol Xl] 50 mg PO DAILY@0800 01/12/19 01/30/25 History Acetaminophen [Acetaminophen 8 hr] 650 mg PO TID@0800,1400,2000 01/30/25 01/30/25 History Acetaminophen [Tylenol] 650 mg PO Q4H PRN 01/30/25 01/30/25 History Atorvastatin [Lipitor] 10 mg PO DAILY@0800 01/30/2525 History Calcium Carbonate [Tums] 1,000 mg PO Q2H PRN 01/30/25 01/30/25 History Cetirizine HCl [Zyrtec] 10 mg PO DAILY PRN 01/30/25 01/30/25 History DULoxetine HCL [Cymbalta] 20 mg PO BID@08,199901/30/25 01/30/25 History Lidocaine 4% Patch 1 patch TOPICAL DAILY@79901/30/25 01/30/25 History Magnesium Hydroxide [Milk of 2,400 mg PO DAILY PRN 01/30/25 01/30/25 History Magnesia] Melatonin 6 mg PO HS@199901/30/25 01/30/25 History Menthol [[place]] 7.5 mg MM Q2H PRN 01/30/25 01/30/25 History Morphine Sulfate [Morphine Sulfate 15 mg PO HS@199901/30/25 01/30/25 History ER] Morphine Sulfate [Morphine Sulfate 30 mg PO DAILY@79901/30/25 01/30/25 History ER] Naproxen [Naprosyn] 250 mg PO BID@08,199901/30/25 01/30/25 History Omeprazole [PriLOSEC] 20 mg PO DAILY@79901/30/25 01/30/25 History Ondansetron [Zofran] 4 mg PO Q6H PRN 01/30/25 01/30/25 History amLODIPine [Norvasc] 10 mg PO DAILY@0801/30/25 01/30/25 History guaiFENesin SYRUP 100MG/5ML 100 mg PO Q4H PRN 01/30/25 01/30/25 History [Robitussin] traZODone HCL [Desyrel] 50 mg PO HS@199901/30/25 01/30/25 History Allergies Allergy/AdvReac Type Severity Reaction Status Date / Time Penicillins Allergy Unknown Verified 01/30/25 16:31 Childhood solifenacin [From Vesicare] Allergy Unknown Verified 01/30/25 16:31 sulfamethoxazole Allergy Nausea & Verified 01/30/25 16:31 [From Bactrim] Vomiting & Diarrhea trimethoprim [From Bactrim] Allergy Nausea & Verified 01/30/25 16:31 Vomiting & Diarrhea Surgical - Exam Vital Signs Temp Pulse Resp BP Pulse Ox 99.4 F 88 18 101/57 97 01/30/25 14:23 01/30/25 14:23 01/30/25 14:23 01/30/25 14:23 01/30/25 14:23 - General well developed, well nourished, no distress - Respiratory normal respiratory effort - Abdomen Soft, non-distended, no mass. Mild diffuse tenderness (R>L), no guarding or rebound. - Psychiatric oriented to time, oriented to person, oriented to place, speech is normal, memory intact Results - Labs 01/31/25 05:20 01/31/25 05:20 Abnormal Lab Results - Last 24 Hours (Table) 01/31/25 01/31/25 Range/Units 05:20 05:20 WBC 11.28 H (4.50-10.00) X 10*3/uL RBC 3.42 L (4.10-5.20) X 10*6/uL Hgb 7.9 L (12.0-15.0) g/dL Hct 25.7 L (37.2-46.3) % MCV 75.1 L (80.0-97.0) FL MCH 23.1 L (27.0-32.0) pg MCHC 30.7 L (32.0-37.0) g/dL RDW 17.8 H (11.5-14.5) % Plt Count 441 H (140-440) X 10*3/uL MPV 8.7 L (9.5-12.2) FL Immature Gran # 0.05 H (0.00-0.04) X 10*3/uL Neutrophils # 9.94 H (1.80-7.70) X 10*3/uL Lymphocytes # 0.37 L (0.90-5.00) X 10*3/uL Eosinophils # 0.02 L (0.04-0.35) X 10*3/uL Potassium 3.3 L (3.5-5.5) mmol/L Creatinine 0.5 L (0.6-1.5) mg/dL BUN/Creatinine Ratio 35.20 H (12.00-20.00) Ratio Calcium 8.5 L (8.7-10.3) mg/dL Diabetes panel 01/31/25 Range/Units 05:20 Sodium 137 (135-145) mmol/L Potassium 3.3 L (3.5-5.5) mmol/L Chloride 100 (96-109) mmol/L Carbon Dioxide 25.7 (21.6-31.8) mmol/L BUN 17.6 (9.0-27.0) mg/dL Creatinine 0.5 L (0.6-1.5) mg/dL Glucose 92 (70-110) mg/dL Calcium 8.5 L (8.7-10.3) mg/dL Calcium panel 01/31/25 Range/Units 05:20 Calcium 8.5 L (8.7-10.3) mg/dL Pituitary panel 01/31/25 Range/Units 05:20 Sodium 137 (135-145) mmol/L Potassium 3.3 L (3.5-5.5) mmol/L Chloride 100 (96-109) mmol/L Carbon Dioxide 25.7 (21.6-31.8) mmol/L BUN 17.6 (9.0-27.0) mg/dL Creatinine 0.5 L (0.6-1.5) mg/dL Glucose 92 (70-110) mg/dL Calcium 8.5 L (8.7-10.3) mg/dL Adrenal panel 01/31/25 Range/Units 05:20 Sodium 137 (135-145) mmol/L Potassium 3.3 L (3.5-5.5) mmol/L Chloride 100 (96-109) mmol/L Carbon Dioxide 25.7 (21.6-31.8) mmol/L BUN 17.6 (9.0-27.0) mg/dL Creatinine 0.5 L (0.6-1.5) mg/dL Glucose 92 (70-110) mg/dL Calcium 8.5 L (8.7-10.3) mg/dL Assessment and Plan (1) Hydronephrosis Current Visit: Yes Status: Acute Code(s): N13.30 - UNSPECIFIED HYDRONEPHROSIS SNOMED Code(s): 15046785 (2) Urinary tract infection Current Visit: Yes Status: Acute Code(s): N39.0 - URINARY TRACT INFECTION, SITE NOT SPECIFIED SNOMED Code(s): 96723757 Plan: Unfortunately, I do not have a CT scan report or images to review. By history, she has left hydroureteronephrosis which may be due to diverticulitis. However, without a CT scan report, I have no way of knowing whether or not she may have a diverticular abscess. Physical examination is quite unremarkable, so I am somewhat doubtful of this. She denies flank pain and her renal function is normal. We will continue to follow with you. Time with Patient: Greater than 30
--- NOTE | 2025-01-31 23:43 | P.CONS ---
History of Present Illness - Reason for Consult Consult date: 01/31/25 UTI, diverticulitis Requesting physician: Yashira Lopez - Chief Complaint Weakness and fall x 1 day - History of Present Illness Patient is a 89-year-old female with a past medical history significant for hypertension and hyperlipidemia patient was taken to the [facility] after apparently the patient did fell out of her bed at her assisted living facility patient did have a pain to the left hip area she did have a CT of abdominal pelvis there was evidence of diverticulitis and left- sided hydroureteronephrosis she did have elevated white count patient was started on Levaquin and vancomycin subsequently patient was transferred to [facility] for further evaluation on presentation to the hospital the patient did have low-grade fever of 99.4 F patient did have mild tachycardia with a heart rate of 95 patient was not hypotensive or hypoxic no need for supplemental oxygen she did have a white count of 16.8 creatinine 0.57 liver enzymes are normal urine has been positive with a culture pending patient did have a positive blood culture at [facility] patient is currently being treated with Rocephin and Flagyl infectious disease was consulted for further management of antibiotic therapy most information has been obtained from review the chart talking to the daughter at the bedside the patient does not have adequate historian there is no detailed history of any nausea or vomiting or diarrhea is very hard to get any history as far as urinary symptoms is concerned. Patient Review of Systems Positive points has been mentioned in HPI complete review could not be obtained because of his underlying mental status Past Medical History Past Medical History: Hyperlipidemia, Hypertension Additional Past Medical History / Comment(s): frequent urination,diverticulitis History of Any Multi-Drug Resistant Organisms: None Reported Past Surgical History: Section, Hysterectomy, Tubal Ligation Past Psychological History: Anxiety, Depression Smoking Status: Never smoker Past Alcohol Use History: None Reported Past Drug Use History: None Reported - Past Family History Sister(s) Family Medical History: Myocardial Infarction ([place]) Mother Family Medical History: Cancer Additional Family Medical History / Comment(s): breast cancer Brother(s) Family Medical History: Cancer Additional Family Medical History / Comment(s): lung cancer Medications and Allergies Home Medications Medication Instructions Recorded Confirmed Type Metoprolol Succinate [Toprol Xl] 50 mg PO DAILY@0800 01/12/19 01/30/25 History Acetaminophen [Acetaminophen 8 hr] 650 mg PO TID@0800,1399,199901/30/25 01/30/25 History Acetaminophen [Tylenol] 650 mg PO Q4H PRN 01/30/25 01/30/25 History Atorvastatin [Lipitor] 10 mg PO DAILY@0800 01/30/25 01/30/25 History Calcium Carbonate [Tums] 1,000 mg PO Q2H PRN 01/30/25 01/30/25 History Cetirizine HCl [Zyrtec] 10 mg PO DAILY PRN 01/30/25 01/30/25 History DULoxetine HCL [Cymbalta] 20 mg PO BID@799,199901/30/25 01/30/25 History Lidocaine 4% Patch 1 patch TOPICAL DAILY@79901/30/25 01/30/25 History Magnesium Hydroxide [Milk of 2,400 mg PO DAILY PRN 01/30/25 01/30/25 History Magnesia] Melatonin 6 mg PO HS@199901/30/25 01/30/25 History Menthol [[place]] 7.5 mg MM Q2H PRN 01/30/25 01/30/25 History Morphine Sulfate [Morphine Sulfate 15 mg PO HS@199901/30/25 01/30/25 History ER] Morphine Sulfate [Morphine Sulfate 30 mg PO DAILY@0801/30/25 01/30/25 History ER] Naproxen [Naprosyn] 250 mg PO BID@799,199901/30/25 01/30/25 History Omeprazole [PriLOSEC] 20 mg PO DAILY@0801/30/25 01/30/25 History Ondansetron [Zofran] 4 mg PO Q6H PRN 01/30/25 01/30/25 History amLODIPine [Norvasc] 10 mg PO DAILY@0801/30/25 01/30/25 History guaiFENesin SYRUP 100MG/5ML 100 mg PO Q4H PRN 01/30/25 01/30/25 History [Robitussin] traZODone HCL [Desyrel] 50 mg PO HS@199901/30/25 01/30/25 History Allergies Allergy/AdvReac Type Severity Reaction Status Date / Time Penicillins Allergy Unknown Verified 01/30/25 16:31 Childhood solifenacin [From Vesicare] Allergy Unknown Verified 01/30/25 16:31 sulfamethoxazole Allergy Nausea & Verified 01/30/25 16:31 [From Bactrim] Vomiting & Diarrhea trimethoprim [From Bactrim] Allergy Nausea & Verified 01/30/25 16:31 Vomiting & Diarrhea Physical Exam Vitals: Vital Signs Temp Pulse Pulse Resp BP BP Pulse Ox 01/31/25 07:53 98.3 F 95 15 134/65 96 01/31/25 05:54 98.3 F 84 18 118/57 95 01/31/25 01:57 77 16 104/48 94 L 01/31/25 00:27 87 18 105/59 95 01/30/25 18:12 92 16 106/57 95 01/30/25 17:22 98.9 F 101 H 16 119/63 99 01/30/25 16:10 99.2 F 91 16 101/55 97 01/30/25 14:23 99.4 F 88 18 101/57 97 Intake and Output 01/30/25 01/31/25 01/31/25 22:59 06:59 14:59 Output Total 400 Balance -400 Output: Urine 400 Other: # Voids 2 # Bowel Movements 2 Weight 46.266 kg GENERAL DESCRIPTION: Elderly female lying in bed, no distress. No tachypnea or accessory muscle of respiration use. HEENT: Shows Pallor , no scleral icterus. Oral mucous membrane is dry. Mild thrush NECK: Trachea central, no thyromegaly. LUNGS: Unlabored breathing. Clear to auscultation anteriorly. No wheeze or crackle. HEART: S1, S2, regular rate and rhythm. No loud murmur ABDOMEN: Soft, suprapubic tenderness EXTREMITIES: No edema of feet. SKIN: No rash, no masses palpable. NEUROLOGICAL: The patient is awake, mood and affect normal. Results CBC & Chem 7: 01/31/25 05:20 01/31/25 05:20 Labs: Abnormal Lab Results - Last 24 Hours (Table) 01/30/25 01/30/25 01/30/25 Range/Units 15:12 15:12 15:31 WBC 16.88 H (4.50-10.00) 10*3/uL RBC 3.57 L (4.10-5.20) 10*6/uL Hgb 8.3 L (12.0-15.0) g/dL Hct 26.0 L (37.2-46.3) % MCV 72.8 L (80.0-97.0) fL MCH 23.2 L (27.0-32.0) pg MCHC 31.9 L (32.0-37.0) g/dL RDW (11.5-14.5) % Plt Count 461 H (140-440) 10*3/uL MPV 8.4 L (9.5-12.2) fL Immature Gran # 0.06 H (0.00-0.04) 10*3/uL Neutrophils # 15.50 H (1.80-7.70) 10*3/uL Lymphocytes # 0.41 L (0.90-5.00) 10*3/uL Eosinophils # 0.00 L (0.04-0.35) 10*3/uL Sodium 129 L (137-145) mmol/L Potassium (3.5-5.5) mmol/L Chloride 93 L (98-107) mmol/L BUN 30 H (7-17) mg/dL Creatinine (0.6-1.5) mg/dL BUN/Creatinine Ratio (12.00-20.00) Ratio Glucose 105 H (74-99) mg/dL Calcium (8.7-10.3) mg/dL Alkaline Phosphatase 149 H (38-126) U/L Total Protein 4.9 L (6.3-8.2) g/dL Albumin 2.4 L (3.5-5.0) g/dL Urine Appearance Turbid H (Clear) Urine Protein 1+ H (Negative) Urine Blood Moderate H (Negative) Urine Nitrite Positive H (Negative) Ur Leukocyte Esterase Large H (Negative) Urine RBC 22 H (0-5) /hpf Urine WBC >182 H (0-5) /hpf Urine WBC Clumps Many H (None) /hpf Ur Squamous Epith Cells 5 H (0-4) /hpf Urine Bacteria Many H (None) /hpf 01/31/25 01/31/25 Range/Units 05:20 05:20 WBC 11.28 H (4.50-10.00) 10*3/uL RBC 3.42 L (4.10-5.20) 10*6/uL Hgb 7.9 L (12.0-15.0) g/dL Hct 25.7 L (37.2-46.3) % MCV 75.1 L (80.0-97.0) fL MCH 23.1 L (27.0-32.0) pg MCHC 30.7 L (32.0-37.0) g/dL RDW 17.8 H (11.5-14.5) % Plt Count 441 H (140-440) 10*3/uL MPV 8.7 L (9.5-12.2) fL Immature Gran # 0.05 H (0.00-0.04) 10*3/uL Neutrophils # 9.94 H (1.80-7.70) 10*3/uL Lymphocytes # 0.37 L (0.90-5.00) 10*3/uL Eosinophils # 0.02 L (0.04-0.35) 10*3/uL Sodium (137-145) mmol/L Potassium 3.3 L (3.5-5.5) mmol/L Chloride (98-107) mmol/L BUN (7-17) mg/dL Creatinine 0.5 L (0.6-1.5) mg/dL BUN/Creatinine Ratio 35.20 H (12.00-20.00) Ratio Glucose (74-99) mg/dL Calcium 8.5 L (8.7-10.3) mg/dL Alkaline Phosphatase (38-126) U/L Total Protein (6.3-8.2) g/dL Albumin (3.5-5.0) g/dL Urine Appearance (Clear) Urine Protein (Negative) Urine Blood (Negative) Urine Nitrite (Negative) Ur Leukocyte Esterase (Negative) Urine RBC (0-5) /hpf Urine WBC (0-5) /hpf Urine WBC Clumps (None) /hpf Ur Squamous Epith Cells (0-4) /hpf Urine Bacteria (None) /hpf Assessment and Plan (1) Sepsis Current Visit: Yes Status: Acute Code(s): A41.9 - SEPSIS, UNSPECIFIED ORGANISM SNOMED Code(s): 68803392 (2) Allergy to multiple antibiotics Current Visit: Yes Status: Acute Code(s): Z88.1 - ALLERGY STATUS TO OTHER ANTIBIOTIC AGENTS SNOMED Code(s): 967146466 (3) Thrush Current Visit: Yes Status: Acute Code(s): B37.0 - CANDIDAL STOMATITIS SNOMED Code(s): 02365848 (4) Diverticulitis Current Visit: Yes Status: Acute Code(s): K57.92 - DVTRCLI OF INTEST, PART UNSP, W/O PERF OR ABSCESS W/O BLEED SNOMED Code(s): 420010776 (5) Urinary tract infection Current Visit: Yes Status: Acute Code(s): N39.0 - URINARY TRACT INFECTION, SITE NOT SPECIFIED SNOMED Code(s): 07908392 Plan: 1patient presented hospital with sepsis in this patient who did have fever tachycardia elevated white count meeting criteria for SIRS source likely combination of diverticulitis and likely complicated UTI as the patient did have a mild hydroureteronephrosis for which urology has been consulted 2-positive blood culture with gram-positive cocci awaiting final ID if staph epi will be disregarded however if Staph aureus further workup will be needed 3-patient with multiple antibiotic ALLERGIES that would limit the number of antibiotic safe to use 4-oral thrush 5-patient will be treated with Rocephin Flagyl vancomycin pharmacy to dose along with nystatin swish and swallow 6-blood culture to be document clearance of bacteremia Daughter at the bedside multiple question concern answered We will follow on clinical condition and cultures to further adjust medication if needed Thank you for this consultation we will follow the patient along with you Dictation was produced using [employer] dictation software. please excuse any grammatical, word or spelling errors.
[2025-02-01 05:31] LABS: African American GFR (CKD) >90 (>60 ml/min/1.73 sqM); Anion Gap 7 mmol/L; Blood Urea Nitrogen 16 mg/dL (7-17); Calcium 8.6 mg/dL (8.4-10.2); Carbon Dioxide 27 mmol/L (22-30); Chloride 99 mmol/L (98-107); Glucose 79 mg/dL (74-99); Non-African American GFR(CKD) 86 (>60 ml/min/1.73 sqM); Potassium 3.3 mmol/L (3.5-5.1); Sodium 133 mmol/L (137-145)
[2025-02-01] MEDS: VANCOMYCIN 750 MG in SODIUM CHLORIDE 0.9% 250 ML IVPB SCH (06:03)
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
[2025-02-01] MEDS: POTASSIUM CHLORIDE ER 20 MEQ TAB.ER PO STA (12:18)
[2025-02-01] MEDS: ENOXAPARIN 40 MG/0.4 ML SYRINGE SQ SCH (12:18)
[2025-02-01 17:28] VITALS: BMI 18.6
[2025-02-02 04:23] LABS: Basophils # (A) 0.02 10*3/uL (0.00-0.10); Basophils % (A) 0.2 %; Eosinophils # (A) 0.32 10*3/uL (0.04-0.35); Eosinophils % (A) 3.1 %; HCT 23.8 % (37.2-46.3); HGB 7.4 g/dL (12.0-15.0); Lymphocytes # (A) 0.41 10*3/uL (0.90-5.00); MCH 23.1 pg (27.0-32.0); MCHC 31.1 g/dL (32.0-37.0); MCV 74.1 fL (80.0-97.0); Mean Platelet Volume 8.8 fL (9.5-12.2); Monocytes # (A) 0.85 10*3/uL (0.20-1.00); Monocytes % (A) 8.3 %; Neutrophils # (A) 8.54 10*3/uL (1.80-7.70); Platelet Count 422 10*3/uL (140-440); RBC 3.21 10*6/uL (4.10-5.20); RDW 18.1 % (11.5-14.5); WBC 10.18 10*3/uL (4.50-10.00)
[2025-02-02 04:43] LABS: African American GFR (CKD) >90 (>60 ml/min/1.73 sqM); Anion Gap 5 mmol/L; Blood Urea Nitrogen 14 mg/dL (7-17); Calcium 8.3 mg/dL (8.4-10.2); Carbon Dioxide 28 mmol/L (22-30); Chloride 100 mmol/L (98-107); Glucose 92 mg/dL (74-99); Non-African American GFR(CKD) 86 (>60 ml/min/1.73 sqM); Potassium 3.4 mmol/L (3.5-5.1); Sodium 133 mmol/L (137-145)
--- NOTE | 2025-02-02 08:15 | P.PN ---
Subjective Progress Note Date: 02/01/25 Principal diagnosis: Reason for follow-up is diverticulitis/UTI Patient is a 89-year-old female with a past medical history significant for hypertension and hyperlipidemia admitted to the hospital with outside CT suggestive of diverticulitis hydroureteronephrosis. On today's evaluation that is 01/31/2025, patient has been afebrile, patient is breathing comfortably and is currently on room air, patient is more awake and alert today denies having any chest pain and cough, patient denies nausea vomiting or diarrhea and no abdominal pain. No CBC was done today creatinine 0.53 urine is growing gram-negative blood cultures are pending Objective - Vital Signs Vital signs: Vital Signs Temp 98.0 F 02/01/25 14:15 Pulse 73 02/01/25 14:15 Resp 17 02/01/25 14:15 BP 99/61 02/01/25 14:15 Pulse Ox 92 L 02/01/25 14:15 FiO2 Intake & Output 01/31/25 02/01/25 02/01/25 18:59 06:59 18:59 Intake Total 120 50 Output Total 400 Balance -400 120 50 Weight 46.266 kg Intake: Oral 120 50 Output: Urine 400 Other: Voiding Method External Catheter Toilet Diaper # Voids 3 3 # Bowel Movements 2 - Exam GENERAL DESCRIPTION: An elderly female up in the chair in no distress RESPIRATORY SYSTEM: Unlabored breathing , decreased breath sounds at bases HEART: S1 S2 regular rate and rhythm , ABDOMEN: Soft , no tenderness EXTREMITIES: No edema feet - Labs CBC & Chem 7: 02/02/25 03:51 02/02/25 03:51 Labs: Abnormal Lab Results - Last 24 Hours (Table) 02/01/25 Range/Units 03:37 Sodium 133 L (137-145) mmol/L Potassium 3.3 L (3.5-5.1) mmol/L Microbiology - Last 24 Hours (Table) 01/30/25 15:31 Urine Culture - Preliminary Urine,Voided Gram Neg Bacilli Assessment and Plan (1) Sepsis Current Visit: Yes Status: Acute Code(s): A41.9 - SEPSIS, UNSPECIFIED OR GANISM SNOMED Code(s): 41115428 (2) Allergy to multiple antibiotics Current Visit: Yes Status: Acute Code(s): Z88.1 - ALLERGY STATUS TO OTHER ANTIBIOTIC AGENTS SNOMED Code(s): 586564408 (3) Thrush Current Visit: Yes Status: Acute Code(s): B37.0 - CANDIDAL STOMATITIS SNOMED Code(s): 37669520 (4) Diverticulitis Current Visit: Yes Status: Acute Code(s): K57.92 - DVTRCLI OF INTEST, PART UNSP, W/O PERF OR ABSCESS W/O BLEED SNOMED Code(s): 671466978 (5) Urinary tract infection Current Visit: Yes Status: Acute Code(s): N39.0 - URINARY TRACT INFECTION, SITE NOT SPECIFIED SNOMED Code(s): 25148046 Plan: 1patient presented hospital with sepsis in this patient who did have fever tachycardia elevated white count meeting criteria for SIRS source likely combination of diverticulitis and likely complicated UTI as the patient did have a mild hydroureteronephrosis for which urology has seen the patient 2-positive blood culture with gram-positive cocci awaiting final ID blood culture done at this facility has been negative so far 3-patient with multiple antibiotic ALLERGIES that would limit the number of antibiotic safe to use 4-oral thrush 5-patient seem to have some mild improvement and will continue with Rocephin Flagyl vancomycin pharmacy to dose along with nystatin swish and swallow, nursing staff has been advised soft diet instead of regular diet at this point Daughter at the bedside multiple question concern answered Dictation was produced using [employer] dictation software. please excuse any grammatical, word or spelling errors. Time with Patient: Less than 30
[2025-02-02] MEDS: FLUCONAZOLE 100 MG TAB PO SCH (08:45)
--- NOTE | 2025-02-02 15:21 | P.PN ---
Subjective Progress Note Date: 02/02/25 Principal diagnosis: Reason for follow-up is diverticulitis/UTI Patient is a 89-year-old female with a past medical history significant for hypertension and hyperlipidemia admitted to the hospital with outside CT suggestive of diverticulitis hydroureteronephrosis. On today's evaluation that is 02/02/2025,the patient denies any fever or any chills, patient is breathing comfortably on room air, the patient denies chest pain shortness of breath and no significant cough, patient abdominal pain is currently controlled no nausea vomiting or diarrhea. Patient white count is down to 10.18, creatinine 0.52, urine cultures growing Kluyvera ascorbata sensitive to Rocephin, blood culture has been negative so far Objective - Vital Signs Vital signs: Vital Signs Temp 98.1 F 02/02/25 07:34 Pulse 86 02/02/25 07:34 Resp 18 02/02/25 12:01 BP 125/63 02/02/25 07:34 Pulse Ox 97 02/02/25 07:34 FiO2 Intake & Output 02/01/25 02/02/25 02/02/25 18:59 06:59 18:59 Intake Total 1050 60 100 Output Total 100 Balance 1050 -40 100 Weight 46.266 kg Intake: Oral 1050 60 100 Output: Urine 100 Other: Voiding Method Toilet External Catheter External Catheter Diaper # Voids 1 2 - Exam GENERAL DESCRIPTION: An elderly female up in the chair in no distress RESPIRATORY SYSTEM: Unlabored breathing , decreased breath sounds at bases HEART: S1 S2 regular rate and rhythm , ABDOMEN: Soft , no tenderness EXTREMITIES: No edema feet - Labs CBC & Chem 7: 02/02/25 03:51 02/02/25 03:51 Labs: Abnormal Lab Results - Last 24 Hours (Table) 02/02/25 02/02/25 Range/Units 03:51 03:51 WBC 10.18 H (4.50-10.00) 10*3/uL RBC 3.21 L (4.10-5.20) 10*6/uL Hgb 7.4 L (12.0-15.0) g/dL Hct 23.8 L (37.2-46.3) % MCV 74.1 L (80.0-97.0) fL MCH 23.1 L (27.0-32.0) pg MCHC 31.1 L (32.0-37.0) g/dL RDW 18.1 H (11.5-14.5) % MPV 8.8 L (9.5-12.2) fL Neutrophils # 8.54 H (1.80-7.70) 10*3/uL Lymphocytes # 0.41 L (0.90-5.00) 10*3/uL Sodium 133 L (137-145) mmol/L Potassium 3.4 L (3.5-5.1) mmol/L Calcium 8.3 L (8.4-10.2) mg/dL Microbiology - Last 24 Hours (Table) 01/31/25 12:55 Blood Culture - Preliminary Blood 01/30/25 15:31 Urine Culture - Preliminary Urine,Voided Gram Neg Bacilli Assessment and Plan (1) Sepsis Current Visit: Yes Status: Acute Code(s): A41.9 - SEPSIS, UNSPECIFIED ORGANISM SNOMED Code(s): 50978987 (2) Allergy to multiple antibiotics Current Visit: Yes Status: Acute Code(s): Z88.1 - ALLERGY STATUS TO OTHER ANTIBIOTIC AGENTS SNOMED Code(s): 993470715 (3) Thrush Current Visit: Yes Status: Acute Code(s): B37.0 - CANDIDAL STOMATITIS SNOMED Code(s): 33779202 (4) Diverticulitis Current Visit: Yes Status: Acute Code(s): K57.92 - DVTRCLI OF INTEST, PART UNSP, W/O PERF OR ABSCESS W/O BLEED SNOMED Code(s): 121294826 (5) Urinary tract infection Current Visit: Yes Status: Acute Code(s): N39.0 - URINARY TRACT INFECTION, SITE NOT SPECIFIED SNOMED Code(s): 18355394 Plan: 1patient presented hospital with sepsis in this patient who did have fever tachycardia elevated white count meeting criteria for SIRS source likely combination of diverticulitis and likely complicated UTI as the patient did have a mild hydroureteronephrosis for which urology has seen the patient 2-positive blood culture with gram-positive cocci awaiting final ID blood culture done at this facility has been negative so far 3-patient with multiple antibiotic ALLERGIES that would limit the number of antibiotic safe to use 4-oral thrush 5-patient urine has been finalized with Wallya ascorbata that is sensitive to ceftriaxone to continue along with the Flagyl and monitor clinical course closely Dictation was produced using [employer] dictation software. please excuse any grammatical, word or spelling errors. Time with Patient: Less than 30
--- NOTE | 2025-02-02 16:20 | CDI ---
Documentation Clarification Form Date: 02/02/2025 04:00:15 PM From: Lliiya Whitehead RN CCDS Phone: [phone] Admit Date: 01/30/2025 03:23:00 PM Patient Name: Nida Nice Visit Number: [id number] Discharge Date: ATTENTION: The Clinical Documentation Specialists (CDI) and [facility] Coding Staff appreciate your assistance in clarifying documentation. Please respond to the clarification below the line at the bottom and electronically sign. The CDI & [facility] Coding staff will review the response and follow-up if needed. Please note: Queries are made part of the Legal Health Record. If you have any questions, please contact the author of this message via ITS. Doctor: Cristino Jauregui Sepsis is documented 01/31, ID Consult which may lack sufficient clinical evidence/support in the medical record. Additional clarification is requested. History/Risk Factors: 89 year old female presents to the ED from [facility] after a fall with left hip pain at assisted living not witnessed, transferred to [facility] for concern of elevated wbc and urinary tract infection. Started on Levaquin and vancomycin. Medical History: Dementia, HLD, HTN and frequent urination. 01/30, HP Clinical Indicators: VSS, 01/30: B/P 101/55, HR 91, Temp 99.2 F Oral, RR 16, SpO2 97% RA LABS, 01/30: Wbc 16.88; Neutrophils 15.50; BNP 1340 Urine Culture: Kluyvera ascorbata, final 02/02/2025 Blood Culture: No growth after 24 hours 02/02/2025 CT Abd pelvis at other hospital: 01/30 HP: Diverticulitis and mild left hydroureternephrosis. Without obstructing calculus. Lab from [facility] 01/30: UA Positive nitrates, greater than 100 wbcs. The Wbc 23.66. Treatment: 01/30 Ceftriaxone IVPB Q24H X 1; 01/31 02/01 Fluconazole IVPB DAILY, 01/31 Ceftriaxone IVPB Q24H, 01/31 Vancomycin IVPB X 1; 02/02 Diflucan PO Daily, 01/30 Flagyl IVPB BID, 02/01 Vancomycin IVPB Q16H After work up and study, please clarify which diagnosis is most appropriate? [ ] Sepsis ruled out [ + ] Sepsis treated prophylactically [ ] Sepsis is a valid diagnosis as evidence by the following: (Please add rationale): [ ] Other, please specify [ ] Unable to determine (Template Last Reviewed: October 2023) JATINDER
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
[2025-02-03 05:31] LABS: African American GFR (CKD) >90 (>60 ml/min/1.73 sqM); Non-African American GFR(CKD) >90 (>60 ml/min/1.73 sqM)
[2025-02-03] MEDS: VANCOMYCIN TROUGH DUE 1 EACH MISC MISCELLANE ONE (06:46)
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
--- NOTE | 2025-02-03 17:22 | P.PN ---
Subjective Progress Note Date: 02/03/25 Principal diagnosis: Reason for follow-up is diverticulitis/UTI Patient is a 89-year-old female with a past medical history significant for hypertension and hyperlipidemia admitted to the hospital with outside CT suggestive of diverticulitis hydroureteronephrosis. On today's evaluation that is 02/03/2025,the patient remains to be afebrile, patient is on room air not requiring supplemental oxygen and denies any shortness of breath no chest pain or cough.Patient denies having any nausea or vomiting, no abdominal pain and no diarrhea has been reported. Patient did have a creatinine 0.46 Objective - Vital Signs Vital signs: Vital Signs Temp 98.1 F 02/03/25 14:18 Pulse 78 02/03/25 14:18 Resp 17 02/03/25 14:18 BP 96/58 02/03/25 14:18 Pulse Ox 94 L 02/03/25 14:18 FiO2 Intake & Output 02/02/25 02/03/25 02/03/25 18:59 06:59 18:59 Intake Total 400 330 Output Total 350 Balance 400 -20 Intake: Oral 400 330 Output: Urine 350 Other: Voiding Method External Catheter External Catheter External Catheter # Voids 3 # Bowel Movements 1 - Exam GENERAL DESCRIPTION: An elderly female up in the chair in no distress RESPIRATORY SYSTEM: Unlabored breathing , decreased breath sounds at bases HEART: S1 S2 regular rate and rhythm , ABDOMEN: Soft , no tenderness EXTREMITIES: No edema feet - Labs CBC & Chem 7: 02/02/25 03:51 02/03/25 05:06 Labs: Abnormal Lab Results - Last 24 Hours (Table) 02/03/25 Range/Units 05:06 Creatinine 0.46 L (0.52-1.04) mg/dL Microbiology - Last 24 Hours (Table) 01/31/25 12:55 Blood Culture - Preliminary Blood 01/30/25 15:31 Urine Culture - Final Urine,Voided Kluyvera ascorbata Assessment and Plan (1) Sepsis Current Visit: Yes Status: Acute Code(s): A41.9 - SEPSIS, UNSPECIFIED ORGANISM SNOMED Code(s): 06607024 (2) Allergy to multiple antibiotics Current Visit: Yes Status: Acute Code(s): Z88.1 - ALLERGY STATUS TO OTHER ANTIBIOTIC AGENTS SNOMED Code(s): 931673185 (3) Thrush Current Visit: Yes Status: Acute Code(s): B37.0 - CANDIDAL STOMATITIS SNO MED Code(s): 09581004 (4) Diverticulitis Current Visit: Yes Status: Acute Code(s): K57.92 - DVTRCLI OF INTEST, PART UNSP, W/O PERF OR ABSCESS W/O BLEED SNOMED Code(s): 230459553 (5) Urinary tract infection Current Visit: Yes Status: Acute Code(s): N39.0 - URINARY TRACT INFECTION, SITE NOT SPECIFIED SNOMED Code(s): 34231145 Plan: 1patient presented hospital with sepsis in this patient who did have fever ta chycardia elevated white count meeting criteria for SIRS source likely combination of diverticulitis and likely complicated UTI as the patient did have a mild hydroureteronephrosis for which urology has seen the patient 2-positive blood culture with gram-positive cocci awaiting final ID blood cultur e done at this facility has been negative so far, if remains to negative would consider discontinuation of the vancomycin 3-patient with multiple antibiotic ALLERGIES that would limit the number of an tibiotic safe to use 4-oral thrush 5-patient urine has been finalized with Kluyvera ascorbata that is sensitive to ceftriaxone, patient is currently treated with Rocephin and Flagyl hopefully finishing therapy with oral Ceftin pathology discussed with the admitting physician Dictation was produced using [employer] dictation software. please excuse any grammatical, word or spelling errors. Time with Patient: Less than 30
[2025-02-03] MEDS: VANCOMYCIN 1,000 MG in SODIUM CHLORIDE 0.9% 250 ML IVPB SCH (17:30)
[2025-02-04 03:54] VITALS: RESP 16
[2025-02-04 14:10] VITALS: BP 118/78; PULSE 78; TEMP 98.1
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
--- NOTE | 2025-02-04 23:01 | P.PN ---
Subjective Progress Note Date: 02/04/25 Principal diagnosis: Reason for follow-up is diverticulitis/UTI Patient is a 89-year-old female with a past medical history significant for hypertension and hyperlipidemia admitted to the hospital with outside CT suggestive of diverticulitis hydroureteronephrosis. On today's evaluation that is 02/04/2025, the patient continues to be afebrile, the patient is on room air and breathing comfortably, the Pt denies having any chest pain or cough, the patient denies having any abdominal pain no vomiting or any diarrhea, mention feeling better. Patient did have a creatinine 0.46 as of yesterday no lab draw today blood culture done here has been negative Objective - Vital Signs Vital signs: Vital Signs Temp 98.1 F 02/04/25 13:26 Pulse 78 02/04/25 13:26 Resp 16 02/04/25 13:26 BP 118/78 02/04/25 13:26 Pulse Ox 94 L 02/04/25 13:26 FiO2 Intake & Output 02/03/25 02/04/25 02/04/25 18:59 06:59 18:59 Intake Total 150 Output Total 200 Balance -50 Weight 46.266 kg Intake: Oral 150 Output: Urine 200 Other: Voiding Method External Catheter Diaper # Voids 1 3 # Bowel Movements 1 1 - Exam GENERAL DESCRIPTION: An elderly female up in the chair in no distress RESPIRATORY SYSTEM: Unlabored breathing , decreased breath sounds at bases HEART: S1 S2 regular rate and rhythm , ABDOMEN: Soft , no tenderness EXTREMITIES: No edema feet - Labs CBC & Chem 7: 02/02/25 03:51 02/03/25 05:06 Labs: Microbiology - Last 24 Hours (Table) 01/31/25 12:55 Blood Culture - Preliminary Blood Assessment and Plan (1) Sepsis Status: Acute Code(s): A41.9 - SEPSIS, UNSPECIFIED ORGANISM SNOMED Code(s): 03800422 (2) Allergy to multiple antibiotics Status: Acute Code(s): Z88.1 - ALLERGY STATUS TO OTHER ANTIBIOTIC AGENTS SNO MED Code(s): 358977156 (3) Thrush Status: Acute Code(s): B37.0 - CANDIDAL STOMATITIS SNOMED Code(s): 13290340 (4) Diverticulitis Status: Acute Code(s): K57.92 - DVTRCLI OF INTEST, PART UNSP, W/O PERF OR ABSCESS W/O BLEED SNOMED Code(s): 319448042 (5) Urinary tract infection Status: Acute Code(s): N39.0 - URINARY TRACT INFECTION, SITE NOT SPECIFIED SNOMED Code(s): 06843990 Plan: 1patient presented hospital with sepsis in this patient who did have fever tachycardia elevated white count meeting criteria for SIRS source likely combination of diverticulitis and likely complicated UTI as the patient did have a mild hydroureteronephrosis for which urology has seen the patient 2-positive blood culture with gram-positive cocci awaiting final ID blood culture done at this facility has been negative so far, blood culture from outside facility finalized with a coagulase-negative staph more likely skin contamination vancomycin was discontinued yesterday 3--patient urine has been finalized with Kluyvera ascorbata that is sensitive to ceftriaxone, 4patient to finish therapy with oral Ceftin and Flagyl prescription sent to the pharmacy care discussed with the daughter at the bedside Dictation was produced using [employer] dictation software. please excuse any gra mmatical, word or spelling errors. Time with Patient: Less than 30
== END 2025-02-04 15:13 | DRG 690 ==
LOC: EC 14:22 → 4SSUR 15:23
PROVIDERS: ADMIT Hospitalist; ATTEND Hospitalist
DX: N13.6 Pyonephrosis (principal); Z66 Do not resuscitate; B37.0 Candidal stomatitis; F03.918 Unspecified dementia, unspecified severity, with other behavioral disturbance; I10 Essential (primary) hypertension; F32.A Depression, unspecified; F03.93 Unspecified dementia, unspecified severity, with mood disturbance; K57.32 Diverticulitis of large intestine without perforation or abscess without bleeding; E87.6 Hypokalemia; G89.29 Other chronic pain; Z79.899 Other long term (current) drug therapy; M54.9 Dorsalgia, unspecified; Z88.1 Allergy status to other antibiotic agents; R53.81 Other malaise; G47.00 Insomnia, unspecified; I87.2 Venous insufficiency (chronic) (peripheral); Z90.710 Acquired absence of both cervix and uterus; Z82.49 Family history of ischemic heart disease and other diseases of the circulatory system; E78.5 Hyperlipidemia, unspecified; Z88.0 Allergy status to penicillin; Z88.2 Allergy status to sulfonamides; Z98.51 Tubal ligation status
CPT/HCPCS: 36415; 80048; 80053; 80202; 81001; 82565; 83605; 83880; 85025; 87040; 87077; 87086; 87186; 93970; 96361; 96365; 96372; 96375; 99285